=== PATIENT | female | born 1955 | race Native Hawaiian/Other Pacific Islander ===

== ENCOUNTER 2022-04-12 11:01 | Outpatient (CLI) | payer OTHER | END 2022-04-12 19:22 | disposition home or self-care (01) | LOC: MAMMO 11:01 | PROVIDERS: ATTEND Nurse Practitioner | DX: Z12.31 Encounter for screening mammogram for malignant neoplasm of breast (principal); Z13.820 Encounter for screening for osteoporosis; N95.8 Other specified menopausal and perimenopausal disorders ==

== ENCOUNTER 2023-03-07 17:54 | Outpatient (CLI) | payer OTHER | END 2023-03-07 19:30 | disposition home or self-care (01) | LOC: RAD 17:54 | PROVIDERS: ATTEND Nurse Practitioner | DX: M79.671 Pain in right foot (principal) ==

== ENCOUNTER 2023-06-27 10:43 | Outpatient (CLI) | payer OTHER ==
[2023-06-27 11:26] LABS: PLATELET COUNT 336 K/uL (152-353)
[2023-06-27 11:36] LABS: PARTIAL THROMBOPLASTIN TIME 28.9 SECONDS (23.9-36.7); POTASSIUM 4.1 mmol/L (3.6-5.2)
== END 2023-06-27 19:09 | disposition home or self-care (01) ==
LOC: RAD 10:43
PROVIDERS: ATTEND Nurse Practitioner
DX: Z01.818 Encounter for other preprocedural examination (principal)
CPT/HCPCS: 36415; 80053; 85027; 85610; 85730